=== PATIENT | female | born 1975 | race Caucasian/White ===

== ENCOUNTER 2023-04-24 11:10 | Emergency (ER) | payer OTHER ==
[~2023-04-24] VITALS: Ht 160 cm; Wt 90.0 kg
[2023-04-24 12:05] VITALS: BP 132/84; PULSE 65; RESP 18; TEMP 99.1
[2023-04-24] MEDS ORDERED: IBUPROFEN 400 MG TABLET PO ONE (12:45)
[2023-04-24] MEDS ORDERED: BACITRACIN 28 GM OINTMENT TP ONE (14:15)
== END 2023-04-24 15:44 ==
LOC: EMS 11:15
DX: S41.012A Laceration without foreign body of left shoulder, initial encounter (principal); M53.3 Sacrococcygeal disorders, not elsewhere classified; Z98.890 Other specified postprocedural states; W18.39XA Other fall on same level, initial encounter; Y93.39 Activity, other involving climbing, rappelling and jumping off; Y92.89 Other specified places as the place of occurrence of the external cause; Y99.8 Other external cause status
CPT/HCPCS: 72220; 99283